=== PATIENT | female | born 1990 | race Caucasian/White ===

== ENCOUNTER 2023-01-26 11:10 | Emergency (ER) | payer BC, SELFPAY ==
[2023-01-26 11:20] VITALS: BP 132/83; PULSE 63; RESP 16; TEMP 36.6; O2SAT 99
--- NOTE | 2023-01-26 11:23 | ED.URI ---
HPI - URI/Sore Throat General Chief Complaint: Upper Respiratory Infection Stated Complaint: Sore Throat and Sinus Problems Source: patient and RN notes reviewed History of Present Illness HPI Narrative: 32 yo F presents to urgent care with scratchy throat, watery eyes, runny nose, and slight cough since yesterday. Pt denies any pain. Denies any ear pain, sore throat, fevers, chills, chest pain, SOB, vomiting, or diarrhea. Related Data Home Medications Medication Instructions Recorded Confirmed olanzapine 10 mg tablet 10 mg PO DAILY 01/26/23 01/26/23 olanzapine 5 mg tablet 5 mg PO DAILY 01/26/23 01/26/23 Allergies Allergy/AdvReac Type Severity Reaction Status Date / Time No Known Allergies Allergy Verified 01/26/23 11:23 Review of Systems Review of Systems: Pertinent positives and pertinent negatives per HPI. PMFSH Comments At the time of my signature, I reviewed and agree with the nursing past medical, surgical, social, and family history. There is no relevant family history pertinent to the patient complaint. Exam Narrative: GENERAL: This is a well-nourished, well-developed patient, in no apparent distress. HEAD: normocephalic, atraumatic. EYES: Sclera clear/white. Vision is grossly intact. EARS: External ears normal, auditory canals clear and without drainage, TMs normal without perforation. Hearing grossly intact. NOSE: External nose normal with no obvious nasal discharge, nares without redness, no rhinorrhea. THROAT: Mucous membranes moist, posterior pharynx clear. NECK: Neck supple, non-tender without lymphadenopathy, masses or thyromegaly. CARDIOVASCULAR: Regular rate and rhythm without murmurs, gallops, or rubs. RESPIRATORY: Clear to auscultation. Breath sounds equal bilaterally. No wheezes, rales, or rhonchi. GASTROINTESTINAL: Abdomen soft, non-tender, nondistended. Bowel sounds are active. No hepato-splenomegaly, or palpable masses. No guarding. SKIN: warm, intact with no suspicious lesions or rash, good texture and turgor. NEURO: awake, alert, and oriented to person, place and time. There were no obvious focal neurologic abnormalities. Course Course Level of Care: Express Care Visit Vital Signs Vital signs: Vital Signs Temperature 97.8 F 01/26/23 11:20 Pulse Rate 63 01/26/23 11:20 Respiratory Rate 16 01/26/23 11:20 Blood Pressure 132/83 01/26/23 11:20 Pulse Oximetry 99 01/26/23 11:20 Oxygen Delivery Room Air 01/26/23 11:20 Temperature 97.8 F 01/26/23 11:20 Pulse Rate 63 01/26/23 11:20 Respiratory Rate 16 01/26/23 11:20 Blood Pressure 132/83 01/26/23 11:20 Pulse Oximetry 99 01/26/23 11:20 Oxygen Delivery Room Air 01/26/23 11:20 Reviewed MDM - URI/Sore Throat MDM Narrative Medical decision making narrative: May take a Zyrtec pill every night to help with symptoms. Drink plenty of water throughout the day. May take a Benadryl to also help with symptoms if need be. Differential Diagnosis Differential diagnosis: Likely upper respiratory infection, viral infection and other (seasonal allergies) Critical Care Time Critical Care Time Critical Care Time: No Discharge Plan Discharge Clinical Impression: Allergic rhinitis Qualifiers: Allergic rhinitis trigger: unspecified Allergic rhinitis seasonality: unspecified Qualified Code(s): J30.9 - Allergic rhinitis, unspecified Patient Disposition: Home, Self-Care Condition: Stable Instructions: Allergies (ED) Additional Instructions: May take a Zyrtec pill every night to help with symptoms. Drink plenty of water throughout the day. May take a Benadryl to also help with symptoms if need be. Prescriptions: No Action olanzapine 5 mg tablet 5 mg PO DAILY olanzapine 10 mg tablet 10 mg PO DAILY Follow-up/Referrals: Minor,Jason Lora MD [Primary Care Provider] - Time of Disposition: 11:29
== END 2023-01-26 11:31 | disposition home or self-care (01) ==
PROVIDERS: Emergency Provider Nurse Practitioner Family; PCP Family Medicine
DX: J30.9 Allergic rhinitis, unspecified (principal); F20.9 Schizophrenia, unspecified
CPT/HCPCS: 99211; G0463